=== PATIENT | female | born 1995 | race Caucasian/White ===

== ENCOUNTER 2016-05-30 09:49 | Emergency (ER) | payer MEDICAID ==
[~2016-05-30] VITALS: Wt 105.0 kg
[~2016-05-30 09:49] MED LIST: PREN1TAB62 PO
[2016-05-30] MEDS ORDERED: HYDROCODONE/APAP (5/325) TAB PO ONE (10:30)
--- NOTE | 2016-05-30 10:35 | ERD ---
ER Documentation Chief Complaint Date/Time DATE: 05/30/16 TIME: 10:30 Chief Complaint HEAD INJURY TODAY HPI This is a 21-year-old female who presents to the emergency department today complaining of head and neck pain after sustaining a fall earlier this morning. Patient states that she was standing on a proximally 4 foot tall chair trying to get into 1 of the cabinets in the kitchen when she fell backwards off of the chair and hit her head and neck. Denies any previous trauma. States that she feels dizzy. States she is unsure if she lost consciousness but "I blacked out for a second". States she has some nausea but no vomiting. ROS All systems reviewed and are negative except as per history of present illness. Medications Home Meds Active Scripts Cyclobenzaprine Hcl* (Cyclobenzaprine Hcl*) 10 Mg Tablet, 10 MG PO QHS, #7 TAB Prov:DUSTY AUSTIN PA-C 05/30/16 Acetaminophen* (Tylophen*) 500 Mg Capsule, 1 CAP PO Q6H Y for PAIN AND OR ELEVATED TEMP, #30 CAP Prov:DUSTY AUSTIN PA-C 05/30/16 Hydrocodone/Acetaminophen ([place] 5-325 Tablet) 1 Each Tablet, 1 TAB PO Q6H Y for PAIN, #12 TAB Prov:DUSTY AUSTIN PA-C 05/30/16 Reported Medications Vit-Iron Fumarate-FA ( Vitamin Tablet) 1 Each Tablet, 1 TAB PO DAILY, TAB 04/07/15 Allergies Allergies: Coded Allergies: Penicillins (Unverified Allergy, Intermediate, rash, 05/08/15) PMhx/Soc Medical and Surgical Hx: pt denies Medical Hx, pt denies Surgical Hx Physical Exam Vitals Vital Signs Date Time Temp Pulse Resp B/P Pulse Ox O2 Delivery O2 Flow Rate FiO2 05/30/16 09:52 98.0 78 18 130/70 99 Physical Exam Const: Obese, no acute distress Head: Atraumatic no evidence of hematoma Eyes: Normal Conjunctiva. PERRLA. EOM intact. ENT: Normal External Ears, Nose and Mouth. No hemotympanum. No epistaxis. Neck: Full range of motion..~ No meningismus. Unable to assess range of motion secondary to pain. Midline tenderness. Resp: Clear to auscultation bilaterally Cardio: Regular rate and rhythm, no murmurs Skin: No petechiae or rashes Neur: Awake and alert Psych: Normal Mood and Affect Results 24 hrs Laboratory Tests Test 05/30/16 10:35 Bedside Urine Blood Negative Bedside Urine Glucose (UA) Negative Bedside Urine Ketones (LAB) Negative Bedside Urine Leukocyte Esterase (L 1+ Bedside Urine Nitrite (LAB) Negative Bedside Urine Protein (LAB) 2+ Bedside Urine pH (LAB) 6.0 Current Medications Medications (Trade) Dose Ordered Sig/Radu Route PRN Reason Start Time Stop Time Status Last Admin Dose Admin Acetaminophen/ Hydrocodone Bitart ([place] (5/325)) 1 tab ONCE ONCE PO 05/30/16 10:30 05/30/16 10:31 DC 05/30/16 10:34 DIAGNOSTIC IMAGING REPORT Patient: WALDO JC : 1995 Age: 21 Sex: F MR #: [id number] DOS: 05/30/16 0000 Ordering MD: DUSTY AUSTIN PA-C Location: [facility] [place] Room/Bed: PROCEDURE: CT Brain without contrast. CLINICAL INDICATION: Trauma. TECHNIQUE: A CT of the brain was performed on a high-resolution CT scanner utilizing a low dose technique with axial imaging from the skull base through the vertex without IV contrast. Multiplanar reformatted images were made. Images were reviewed on a PACS workstation. The CTDIvol is 42.6 mGy and the DLP is 720 mGycm. One or more of the following dose reduction techniques were used: - Automated exposure control. - Adjustment of the mA and/or kV according to patient size. Use of iterative reconstruction technique. COMPARISON: No. FINDINGS: The fourth ventricle is normal in size. The third and lateral ventricles are normal in size and configuration. The brain parenchyma is normal. The visible portions of the globes and extraocular muscles are normal. There is mucosal thickening in the left maxillary sinus. There is a mucosal thickening in the middle left ethmoid sinus. No skull fracture is identified. IMPRESSION: 1. No evidence of intracranial hemorrhage or of an acute skull fracture. 2. Mucosal thickening of the left maxillary sinus and middle left ethmoid air cell suspicious for sinusitis. RPTAT:AAJJ Scott Gay, Physician Date Time Electronically viewed and signed by Physician Griffin on 05/30/2016 12:23 JM/ CC: DUSTY AUSTIN PA-C DIAGNOSTIC IMAGING REPORT Patient: WALDO JC : 1995 Age: 21 Sex: F MR #: [id number] DOS: 05/30/16 0000 Ordering MD: DUSTY AUSTIN PA-C Location: [facility] Room/Bed: PROCEDURE: CT C-Spine without Contrast CLINICAL INDICATION: Trauma, fell off chair landed on tile TECHNIQUE: Transaxial images were obtained through the cervical spine on a multi sliced scanner without contrast. Sagittal and coronal re-formations were subsequently reformatted. One or more of the following dose reduction techniques were used: - Automated exposure control. - Adjustment of the mA and/or kV according to patient size. - Use of iterative reconstruction technique. Radiation dose: CTDIvol = 22.13 mGy; DLP = 432.69 mGy-cm. COMPARISON: None FINDINGS: Osseous structures: Appear intact with no fracture or destructive process identified. Alignment: There is straightening of the normal lordotic curvature to the cervical spine without subluxation. Disk spaces, endplates, and facet joints: Are well maintained. No significant disk bulge or herniation is identified. There is no significant stenosis to the central canal hour to a nerve root canal. Soft tissues: Are unremarkable. IMPRESSION: 1. No cervical spine fracture or subluxation is evident. 2. Straightening of the normal lordotic curvature to the cervical spine. 3. Otherwise, unremarkable CT scan of the cervical spine. Physician Juan R Date Time Electronically viewed and signed by Physician Juan R on 05/30/2016 12:45 RH/ CC: DUSTY AUSTIN PA-C Procedures/MDM This is a 21-year-old female who presents the emergency department today complaining of head and neck pain after sustaining a fall earlier this morning. Given the patient's complaint of severe head and neck pain I did explain to the patient that I could do a head CT scan at this time especially given that she is unsure if she lost consciousness. I did explain the risks and benefits of the procedure and the patient agreed to proceed. Head CT noncontrast shows no evidence of intracranial hemorrhage or an acute skull fracture. There is mucosal thickening in the left maxillary sinus and middle left ethmoid air cells suspicious for sinusitis. Cervical spine CT shows no cervical spine fracture or subluxation. Soft tissues are unremarkable. Disc space endplate and facet joints are well- maintained there is no significant disc bulge or herniation identified. There is no stenosis. There is some straightening of the normal lordotic curve to the spine Patient symptoms at this time consistent with acute head injury and neck contusion versus strain versus sprain Patient was given [place] here in the emergency department. She was also given a soft neck collar. She will be given a prescription for [place], Flexeril for home. Patient was instructed to use the soft collar only for comfort and not stay in it for prolonged periods of time. She is instructed to apply ice and heat intermittently. At this time the patient is stable for discharge and outpatient management. Patient should follow up with their PCP in the next 1-2 days. They may return to the emergency department sooner for any persistent or worsening of symptoms. Patient understood and agreed with the plan. Departure Diagnosis: Primary Impression: Acute head injury Encounter type: initial encounter Qualified Code: S09.90XA - Acute head injury, initial encounter Additional Impression: Neck injury Encounter type: initial encounter Qualified Code: S19.9XXA - Neck injury, initial encounter Condition: Fair DUSTY AUSTIN PA-C May 30, 2016 10:34
[2016-05-30 10:36] LABS: URINE BLOOD (Dip) POC Negative (NEGATIVE)
--- NOTE | 2016-05-30 12:24 | RADRPT ---
PROCEDURE: CT Brain without contrast. CLINICAL INDICATION: Trauma. TECHNIQUE: A CT of the brain was performed on a high-resolution CT scanner utilizing a low dose te chnique with axial imaging from the skull base through the vertex without IV contrast. Multiplanar reformatted images were made. Images were reviewed on a PACS workstation. The CTDIvol is 42.6 mGy and the DLP is 720 mGycm. One or more of the following dose reduction techniques were used: - Automated exposure control. - Adjustment of the mA and/or kV according to patient size. Use of iterative reconstruction technique. COMPARISON: No. FINDINGS: The fourth ventricle is normal in size. The third and lateral ventricles are normal in size and con figuration. The brain parenchyma is normal. The visible portions of the globes and extraocular muscles are normal. There is mucosal thickening i n the left maxillary sinus. There is a mucosal thickening in the middle left ethmoid sinus. No sku ll fracture is identified. IMPRESSION: 1. No evidence of intracranial hemorrhage or of an acute skull fracture. 2. Mucosal thickening of the left maxillary sinus and middle left ethmoid air cell suspicious for s inusitis. RPTAT:AAJJ Physician Griffin Date Time Electronically viewed and signed by Physician Griffin on 05/30/2016 12:23 /
--- NOTE | 2016-05-30 12:46 | RADRPT ---
PROCEDURE: CT C-Spine without Contrast CLINICAL INDICATION: Trauma, fell off chair landed on tile TECHNIQUE: Transaxial images were obtained through the cervical spine on a multi sliced scanner wit hout contrast. Sagittal and coronal re-formations were subsequently reformatted. One or more of the following dose reduction techniques were used: - Automated exposure control. - Adjustment of the mA and/or kV according to patient size. - Use of iterative reconstruction technique. Radiation dose: CTDIvol = 22.13 mGy; DLP = 432.69 mGy-cm. COMPARISON: None FINDINGS: Osseous structures: Appear intact with no fracture or destructive process identified. Alignment: There is straightening of the normal lordotic curvature to the cervical spine without sub luxation. Disk spaces, endplates, and facet joints: Are well maintained. No significant disk bulge or herniat ion is identified. There is no significant stenosis to the central canal hour to a nerve root canal. Soft tissues: Are unremarkable. IMPRESSION: 1. No cervical spine fracture or subluxation is evident. 2. Straightening of the normal lordotic curvature to the cervical spine. 3. Otherwise, unremarkable CT scan of the cervical spine. Physician Juan R Date Time Electronically viewed and signed by Physician Juan R on 05/30/2016 12:45 /
[2016-05-30] MEDS ORDERED: ACET500C5 PO (12:53)
[2016-05-30] MEDS ORDERED: HYDR-906 PO (12:53)
[2016-05-30] MEDS ORDERED: CYCL-319 PO (12:54)
[2016-05-30 13:03] VITALS: BP 118/67; PULSE 69; RESP 18; TEMP 98
== END 2016-05-30 13:04 | disposition home or self-care (01) ==
LOC: FTE 09:49
DX: S09.90XA Unspecified injury of head, initial encounter (principal); S19.9XXA Unspecified injury of neck, initial encounter; R42 Dizziness and giddiness; W01.190A Fall on same level from slipping, tripping and stumbling with subsequent striking against furniture, initial encounter; Y92.000 Kitchen of unspecified non-institutional (private) residence as the place of occurrence of the external cause
CPT/HCPCS: 70450; 72125; 81003; Z7502; Z7610